=== PATIENT | female | born 1970 | race American Indian/Alaskan Native ===

== ENCOUNTER 2017-01-19 08:42 | Emergency (ER) | payer BC, MEDICARE ==
[2017-01-19 08:48] VITALS: BP 127/99
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
[2017-01-19] MEDS ORDERED: NORCO 5/325 PO ONE (11:05)
[2017-01-19] MEDS ORDERED: TRIMOX PO ONE (11:05)
== END 2017-01-19 12:50 | disposition home or self-care (01) ==
LOC: ED 08:42
DX: K08.89 Other specified disorders of teeth and supporting structures (principal); M79.662 Pain in left lower leg; F17.200 Nicotine dependence, unspecified, uncomplicated; F12.10 Cannabis abuse, uncomplicated
CPT/HCPCS: 99282

== ENCOUNTER 2017-01-29 17:30 | Emergency (ER) | payer MEDICARE ==
[2017-01-29 17:45] VITALS: BP 155/112
--- NOTE | 2017-01-29 17:54 | Emergency Department Report ---
Chief Complaint: Headache Stated Complaint: LEFT FACE SWELLING A FEW WEEKS Time Seen by Provider: 01/29/17 17:51 - HPI History of Present Illness: PT states she thought she had a toothache about a month ago. PT states she was seen about and finished her antibiotics but her head still hurts. PT states her bp is also high. PT states she is currently taking her BP medication as prescribed - ROS Review of Systems: + nausea + headache - Exam Vital Signs: Vital Signs 01/29/17 17:42 Temperature 98.2 F Pulse Rate 94 H Respiratory 18 Rate Blood Pressure 155/112 O2 Sat by Pulse 100 Oximetry Physical Exam: PT is alert and appropriate gcs 15 steady gait no facial swelling noted no focal weakness noted MSE screening note: Focused history and physical exam performed. Due to findings the following was ordered: labs ED Disposition for MSE Condition: Stable
[2017-01-29 18:32] LABS: Anion Gap 19 mmol/L; BUN/Creatinine Ratio 17.14; Blood Urea Nitrogen 12 mg/dL (7-17); Calcium 8.8 mg/dL (8.4-10.2); Carbon Dioxide 20 mmol/L (22-30); Glucose 84 mg/dL (65-100); Potassium 4.2 mmol/L (3.6-5.0); Sodium 136 mmol/L (137-145)
[2017-01-29 19:06] LABS: Hematocrit 37.3 % (30.3-42.9); Mean Corpuscular HGB Conc 32 % (30-34); Mean Corpuscular Hemoglobin 29 pg (28-32); Mean Corpuscular Volume 90 fl (79-97); Platelet Count 450 K/mm3 (140-440); Red Blood Count 4.17 M/mm3 (3.65-5.03); Red Cell Distribution Width 13.5 % (13.2-15.2); White Blood Count 9.3 K/mm3 (4.5-11.0)
[2017-01-29 19:50] LABS: Basophils % (Manual) 0 % (0.0-1.8); Blastocytes % (Manual) 0 %
--- NOTE | 2017-01-29 19:51 | Cat Scan Report ---
FINAL REPORT PROCEDURE: CT HEAD/BRAIN WO CON TECHNIQUE: Computerized tomography of the head was performed without contrast material. HISTORY: Headache. Hypertension. DLP 1075.62 mGy-cm. COMPARISON: No prior studies are available for comparison. FINDINGS: Skull and scalp: Normal. Paranasal sinuses: Normal. Ventricles and subarachnoid spaces: Normal. Cerebrum: No evidence of hemorrhage, acute infarction or mass . Cerebellum and brainstem: No evidence of hemorrhage, acute infarction or mass. Vasculature: Normal. Comments: None. IMPRESSION: No CT evidence of acute intracranial pathology. Consider MRI of the brain for further evaluation if there is continued clinical concern and if patient has no contraindication to MRI.
[2017-01-29 19:52] LABS: Diff Status Complete; Platelet Estimate Consistent w Auto; RBC Morphology Normal
== END 2017-01-30 02:23 | disposition left against medical advice (07) ==
LOC: ED 17:30
DX: R51 Headache (principal); R11.0 Nausea; Z53.21 Procedure and treatment not carried out due to patient leaving prior to being seen by health care provider
CPT/HCPCS: 36415; 70450; 80048; 85007; 85025